=== PATIENT | female | born 1995 | race Caucasian/White ===

== ENCOUNTER 2024-03-22 13:42 | Emergency (ER) | payer OTHER ==
[~2024-03-22] VITALS: Ht 175.3 cm; Wt 79.8 kg
[2024-03-22] MEDS ORDERED: ESCITALOPRAM OX20 MG (13:59)
[2024-03-22] MEDS ORDERED: NITROFURANTOIN100 M1 (13:59)
[2024-03-22] MEDS ORDERED: VITAFOL-OB+DHA1 EACH (13:59)
[2024-03-22 14:38] LABS: BILIRUBIN, URINE NEGATIVE (negative); BLOOD/HGB, URINE TRACE-I (Negative); KETONE, URINE SMALL (Negative); LEUK ESTERASE, URINE TRACE (negative); NITRITE, URINE NEGATIVE (negative); PH, URINE 6.5 (5-7)
[2024-03-22 14:45] LABS: BACTERIA, URINE 2+ /hpf (negative); CASTS, URINE NONE SEEN \\lpf; COLLECTION TYPE, URINE CLEAN CATCH; CRYSTALS, URINE NONE SEEN (0-1+); EPITHELIAL CELLS, URINE SQUAMOUS 1+ /lpf (0-1+); REFLEX CULTURE, URINE Yes (No)
[2024-03-22] MEDS ORDERED: ONDANSETRON ODT4 MG PO (15:40)
[2024-03-22] MEDS ORDERED: CEPHALEXIN500 MG PO (15:40)
[2024-03-22 15:41] VITALS: BP 111/54
[2024-03-22] MEDS ORDERED: ACETAMINOPHEN 500 MG TAB PO ONE (15:45)
[2024-03-22] MEDS ORDERED: ONDANSETRON 4 MG TAB ODT SL ONE (15:45)
[2024-03-22] MEDS ORDERED: CEPHALEXIN MONOHYDRATE 500 MG CAP PO ONE (15:45)
== END 2024-03-22 15:45 | disposition home or self-care (01) ==
LOC: ED 13:42
PROVIDERS: Emergency Medicine
DX: O23.42 Unspecified infection of urinary tract in pregnancy, second trimester (principal); N39.0 Urinary tract infection, site not specified; Z3A.27 27 weeks gestation of pregnancy; Z88.0 Allergy status to penicillin; Z79.899 Other long term (current) drug therapy
CPT/HCPCS: 51798; 81001; 87088; 99284-25; A9270

== ENCOUNTER 2024-06-21 06:00 | Inpatient (IN) | payer OTHER, BC ==
[~2024-06-21] VITALS: Ht 175.3 cm; Wt 86.2 kg
[~2024-06-21 06:00] MED LIST: CEPHALEXIN500 MG PO; ESCITALOPRAM OX20 MG; NITROFURANTOIN100 M1; ONDANSETRON ODT4 MG PO; VITAFOL-OB+DHA1 EACH
[2024-06-21] MEDS ORDERED: OXYTOCIN/0.9 % SODIUM CHLORIDE 30 UNITS/500 ML BAG IV SCH (06:15)
[2024-06-21] MEDS ORDERED: OXYTOCIN/0.9 % SODIUM CHLORIDE 500 ML IV SCH ×2 (06:30→20:45)
[2024-06-21 06:43] LABS: HEMATOCRIT 34.2 % (35.0-50.0); HEMOGLOBIN 11.6 g/dL (12.0-18.0); MCH 30.3 (27-36); MCV 89.3 fl (81-99); RBC 3.83 M/ul (4.3-5.7); RDW 13.3 (10.5-15.0)
[2024-06-21 06:51] VITALS: BP 122/77
[2024-06-21 06:56] LABS: AMPHETAMINES, URINE NEGATIVE (NEGATIVE); BARBITURATES, URINE NEGATIVE (NEGATIVE); BENZODIAZEPINE, URINE NEGATIVE (NEGATIVE); BUPRENORPHINE, URINE NEGATIVE (NEGATIVE); CANNABINOID, URINE NEGATIVE (NEGATIVE); COCAINE, URINE NEGATIVE (NEGATIVE); ECSTASY, URINE NEGATIVE (NEGATIVE); FENTANYL, URINE NEGATIVE (NEGATIVE); METHADONE, URINE NEGATIVE (NEGATIVE); OPIATES, URINE NEGATIVE (NEGATIVE); OXYCODONE, URINE NEGATIVE (NEGATIVE); PHENCYCLIDINE, URINE NEGATIVE (NEGATIVE)
[2024-06-21] MEDS ORDERED: MAGNESIUM HYDROXIDE/AL HYDROX 30 ML CUP PO PRN ×2 (07:00→20:45)
[2024-06-21] MEDS ORDERED: CALCIUM CARBONATE 500 MG CHEW PO PRN ×2 (07:00→20:45)
[2024-06-21] MEDS ORDERED: LACTATED RINGER'S 1,000 ML IV PRN (07:00)
[2024-06-21] MEDS ORDERED: LACTATED RINGER'S 1,000 ML IV SCH (07:00)
[2024-06-21 07:20] LABS: ABO A; ANTIBODY SCREEN NEGATIVE; RH POSITIVE
[2024-06-21] MEDS ORDERED: ePHEDrine sulfate 5 MG/ML SYRINGE IV PRN (11:15)
[2024-06-21] MEDS ORDERED: LACTATED RINGER'S 2,000 ML IV ONE (11:15)
[2024-06-21] MEDS ORDERED: LACTATED RINGER'S 500 ML IV PRN (11:15)
[2024-06-21] MEDS ORDERED: ROPIVACAINE 0.2% 200 ML BAG EPIDURAL SCH (11:15)
[2024-06-21] MEDS ORDERED: LIDOCAINE 2% W/ EPI 1:200,000 20 ML SDV ONE (16:19)
[2024-06-21] MEDS ORDERED: dexmedeTOMIDine HCl 200 MCG/2 ML VIAL ONE (16:20)
[2024-06-21] MEDS ORDERED: SODIUM CHLORIDE 0.9% 20 ML IV ONE (16:21)
[2024-06-21] MEDS ORDERED: HYDROCODONE/ACETA 5/325 TAB PO PRN (20:45)
[2024-06-21] MEDS ORDERED: BENZOCAINE 60 ML AEROSOL TOP PRN (20:45)
[2024-06-21] MEDS ORDERED: WITCH HAZEL/GLYCERIN 1 EA PAD TOP PRN (20:45)
[2024-06-21] MEDS ORDERED: HYDROCORTISONE ACETATE 25 MG SUPP PR PRN (20:45)
[2024-06-21] MEDS ORDERED: MAGNESIUM HYDROXIDE 30 ML UDC PO PRN (20:45)
[2024-06-21] MEDS ORDERED: SENNOSIDES/DOCUSATE 1 EA TAB PO SCH (21:00)
[2024-06-21] MEDS ORDERED: ACETAMINOPHEN 500 MG TAB PO SCH (22:00)
[2024-06-22] MEDS ORDERED: IBUPROFEN 600 MG TAB PO SCH (02:00)
== END 2024-06-22 22:00 | disposition home or self-care (01) | DRG 806 ==
LOC: FBC 06:00
PROVIDERS: ADMIT Obstetrics & Gynecology; ATTEND Obstetrics & Gynecology
PROC: 10E0XZZ Delivery of Products of Conception, External Approach (ICD-10-PCS; principal; 2024-06-21)
PROC: 0KQM0ZZ Repair Perineum Muscle, Open Approach (ICD-10-PCS; 2024-06-21)
PROC: 10907ZC Drainage of Amniotic Fluid, Therapeutic from Products of Conception, Via Natural or Artificial Opening (ICD-10-PCS; 2024-06-21)
DX: O99.344 Other mental disorders complicating childbirth (principal); O99.354 Diseases of the nervous system complicating childbirth; Z37.0 Single live birth; O69.1XX0 Labor and delivery complicated by cord around neck, with compression, not applicable or unspecified; Z3A.39 39 weeks gestation of pregnancy; O70.1 Second degree perineal laceration during delivery; Z91.040 Latex allergy status; F41.9 Anxiety disorder, unspecified; F32.A Depression, unspecified; G43.909 Migraine, unspecified, not intractable, without status migrainosus; Z88.0 Allergy status to penicillin; Z79.899 Other long term (current) drug therapy
CPT/HCPCS: 36415; 80307; 85027; 86850; 86900; 86901; A9270; J7121